=== PATIENT | male | born 1995 | race Caucasian/White ===

== ENCOUNTER 2017-04-04 07:15 | Outpatient (CLI) | payer OTHER ==
--- NOTE | 2017-04-04 09:36 | MRI ---
BRAIN MRI WITH AND WITHOUT CONTRAST: Indication: Myoclonic jerking. Comparison: No prior imaging. FINDINGS: Ventricular system is normal in size. Septum pallidum and third ventricle are midline. No significant signal abnormalities in the brain parenchyma. There is no acute territorial infarction. No pathologi c intraaxial enhancement. Scattered paranasal sinus mucosal thickening and retention cyst formation p resent. The imaged skull base flow voids are maintained. IMPRESSION: No acute intracranial abnormalities. POS: JEY
[2017-04-04] MEDS ORDERED: Gadobenate Dimeglumine 529 MG/1 ML (20ML VIAL) ONE (13:18)
== END 2017-04-04 07:16 | disposition home or self-care (01) ==
LOC: MRI 07:15
PROVIDERS: ATTEND Psychiatry & Neurology Neurology
DX: G25.3 Myoclonus (principal)
CPT/HCPCS: 70553; 95816; A9579